=== PATIENT | female | born 1980 | race Caucasian/White ===

== ENCOUNTER 2020-10-22 18:31 | Emergency (ER) | payer BC ==
[~2020-10-22] VITALS: Ht 160 cm; Wt 59.0 kg
--- NOTE | 2020-10-22 18:43 | NUR ---
ED Nurse Note: pt presents to ED with a L thumb lac. pt states that she was cutting brownies and the knife slipped, lacerating her thumb. pt does not know if tetanus is UTD, no other complaints at this time
[2020-10-22] MEDS ORDERED: HYDROcodone/Acetamin 5/325 tab ORAL ONE (18:45)
[2020-10-22] MEDS ORDERED: Lidocaine 1% MPF 10mg/ml 5ml IM ONE (18:45)
[2020-10-22] MEDS ORDERED: Cephalexin 500mg cap ORAL ONE (19:00)
[2020-10-22] MEDS ORDERED: Tetanus/Diptheria/Pertussis IM ONE (19:00)
[2020-10-22] MEDS ORDERED: Bacitracin Oint UD TOPIC ONE ×2 (19:34→20:00)
[2020-10-22 19:40] VITALS: BP 123/75
--- NOTE | 2020-10-22 19:50 | NUR ---
ED Nurse Note: pt's L thumb was irrigated and lac repaired, pt tolerated well
--- NOTE | 2020-10-22 19:50 | Emergency Room Report ---
History of Present Illness General Chief Complaint: Laceration Source: Patient Present Illness HPI 40-year-old female presents today with left first digit finger laceration. Onset prior to arrival. Severity mild, quality throbbing. No modifying factors. Patient denies any other associated signs or symptoms. Patient states she was cutting a brownie earlier today with a knife and cut her finger. Patient is unsure of her last tetanus shot PMH: [Denies] PSH: [Denies] Smoking: [Denies] Ethanol: [Denies] Drug: [Denies] Allergies: Coded Allergies: No Known Allergies (Unverified , 10/22/20) COVID-19 Screening Contact w/high risk pt: No Experienced COVID-19 symptoms?: No COVID-19 Testing performed HOSPITAL ORDERLY: No Nursing Documentation-PMH Past Medical History: No Stated History Review of Systems Narrative Review of systems: CONST: No fevers or chills, No night sweats EYES: No eye pain, vision change, eye discharge HEAD/EARS/NOSE/THROAT: No earache, sore throat, or nasal discharge. PULMONARY: No SOB, no cough, no wheezing CARDIAC: No chest pain, No palpitations, no leg swelling GI: No abdominal pain, no vomiting, no diarrhea , no melena or BRBPR : No flank pain, no dysuria, no hematuria, no frequency. MUSCULOSKELETAL: No back pain, no neck pain, no leg pain SKIN: +laceration on left finger, No rash, no itching, no bruising NEUROLOGICAL: No headache, no dizziness, no paresthesia , no focal weakness. 14 point Review of Systems is otherwise negative except per HPI Physical Exam Vital Signs Date Time Temp Pulse Resp B/P (MAP) Pulse Ox O2 Delivery O2 Flow Rate FiO2 10/22/20 18:35 97.9 77 16 123/75 (91) 99 Room Air Other Organ Systems General: in no distress, nontoxic Head: Normocephalic, atraumatic Eyes: EOM grossly intact, PERRLA Nose: no deformity Ears: no deformity Oral: moist mucous membranes Neck: supple, no rigidity, no masses Respiratory: normal work of breathing Abdomen: nondistended Musculoskeletal: no limitation in range of motion, no deformity Skin: 3cm U shaped laceration to the palmar aspect of the 1st digit of left hand, no evidence of foreign bodies, no surrounding warmth erythema or swelling. All other skin warm, dry Neurologic: awake, alert, moves all extremities grossly, sensation grossly intact Psych: appropriate affect Procedures Laceration/Wound Repair Progress PROCEDURE: Repair of laceration Verbal consent was obtained. See Exam section for a description of the wound. The area around the wound was cleansed, prepped and draped in a normal manner. Local anesthesia was performed using lidocaine. The wound was thoroughly irrigated with normal saline. The wound was carefully explored, and 0 foreign bodies were noted. Size: 3cm U shaped laceration to the left 1st digit of hand. The wound was repaired with 1 layer(s) using 5-0 ethilon. The wound was Dressed. The patient tolerated the procedure well. There were no complications. Medical Decision Making PA Attestation Dr. Archer Is my supervising Physician whom patient management has been discussed with. Diagnostic Impression: Primary Impression: Laceration ER Course Pt. presents to the ED c/o laceration Ddx considered but are not limited to laceration, abrasion, avulsion, tendon injury, infection, retained foreign body, fracture. All these were considerations but not limited to for this patient. Vital signs: are WNL, pt. is afebrile ORDERS: wound irrigation, bacitracin, wound care ED INTERVENTIONS: Laceration repair, see procedure note. DISCHARGE: MDM: Laceration repair was done without complications. Pt was distal neurovascularly in tact. No decrease in sensation. No diamante tenderness. No signs of injury or foreign body. Full ROM. No deformities or swelling. Tetanus shot was updated today.Advised patient to return in 2 days for wound check and return in 10-14 days for suture removal. Advised pt to return to ER if they experiences any worsening in sxs, any fevers, chills, nausea, vomiting, or muscle tightness. Pt was given norco for pain. She was told not to drive on it and she states she has her picking her up. At this time pt. is stable for d/c to home. Will provide printed patient care instructions, and any necessary prescriptions. Care plan and follow up instructions have been discussed with the patient prior to discharge. Laboratory Tests Test 10/22/20 18:45 Urine HCG, Qualitative Negative (NEGATIVE) Last Vital Signs Date Time Temp Pulse Resp B/P (MAP) Pulse Ox O2 Delivery O2 Flow Rate FiO2 10/22/20 18:35 97.9 77 16 123/75 (91) 99 Room Air Status: improved Disposition: HOME, SELF-CARE Condition: Stable Scripts Bacitracin (Bacitracin) 28.4 Gm Oint...g. 1 APPLIC TOPIC THREE TIMES A DAY, #28.4 GM Prov: Anna Collado 10/22/20 Cephalexin* (KEFLEX*) 500 Mg Capsule 500 MG ORAL EVERY 12 HOURS for 7 Days, #14 CAP 0 Refills Prov: Anna Collado 10/22/20 Referrals: NON PHYSICIAN (PCP) Patient Instructions: Laceration Care, Adult Additional Instructions: Take Tylenol or ibuprofen as needed for the pain. Take Keflex as directed. Clean wound with warm soapy water and use bacitracin for dressing. Follow up with a Primary Care Provider in 1-2 days, even if your symptoms have resolved. Return to ER in 2 days for wound check and in 10 to 14 days for suture removal. Return sooner to ED if new symptoms occur, or current symptoms become worse. - Please note that this Emergency Department Report was dictated using [employer] technology software, occasionally this can lead to erroneous entry secondary to interpretation by the dictation equipment. Bhavna Pinto PA-C Oct 22, 2020 19:50
[2020-10-22] MEDS ORDERED: CEPHALEXIN500 MG ORAL (19:58)
[2020-10-22] MEDS ORDERED: BACITRACIN15 GM TOPIC (19:58)
[2020-10-22 20:05] VITALS: BP 123/75
--- NOTE | 2020-10-22 20:05 | NUR ---
ER DISCHARGE NOTE: Patient is cleared to be discharged per ERMD, pt is aox4, on room air, with stable vital signs. pt was given dc and prescription instructions, pt was able to verbalize understanding, pt id band removed without complications. pt is able to ambulate with steady gait. pt took all belongings.
== END 2020-10-22 20:05 | disposition home or self-care (01) ==
LOC: EMR 18:45
DX: S61.012A Laceration without foreign body of left thumb without damage to nail, initial encounter (principal); W26.0XXA Contact with knife, initial encounter; Y93.89 Activity, other specified; Y92.010 Kitchen of single-family (private) house as the place of occurrence of the external cause
CPT/HCPCS: 81025; 90471; 90715; 99283